=== PATIENT | male | born 1990 | race African-American/Black ===

== ENCOUNTER 2023-12-03 09:38 | Emergency (ER) | payer MEDICAID, OTHER ==
[~2023-12-03] VITALS: Ht 162.6 cm; Wt 59.0 kg
[2023-12-03 09:50] VITALS: BP 139/73; PULSE 112; RESP 16; TEMP 98; O2SAT 100
[2023-12-03] MEDS ORDERED: CLIN-194 MT (10:38)
[2023-12-03] MEDS ORDERED: BO1 TP (10:38)
== END 2023-12-03 11:02 | disposition home or self-care (01) ==
LOC: ER 09:38
DX: L03.012 Cellulitis of left finger (principal); Z88.0 Allergy status to penicillin; Z88.1 Allergy status to other antibiotic agents; Z88.2 Allergy status to sulfonamides
CPT/HCPCS: 99283; Z7610